=== PATIENT | female | born 1960 | race Caucasian/White ===

== ENCOUNTER 2017-01-12 21:51 | Emergency (ER) | payer BC ==
[2017-01-12] MEDS ORDERED: Ondansetron 4 MG/2 ML SDV IVPUSH ONE (22:14)
[2017-01-12] MEDS ORDERED: Ketorolac 30 MG/ML SDV IVPUSH ONE (22:14)
[2017-01-12] MEDS ORDERED: Dexamethasone 4 MG/ML SDV IVPUSH ONE (22:14)
[2017-01-12] MEDS ORDERED: Sodium Chloride 0.9% 1,000 ML IV SCH (22:15)
[2017-01-12] MEDS ORDERED: Sodium Chloride 0.9% 10 ML Syringe FLUSH PRN (22:17)
--- NOTE | 2017-01-12 22:19 | EDM.PDOC ---
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 Pt c/o photophobia, has no nausea at this time, did not vomit, denied head injuries. BP was 125/86 No neck pain, no SOB, no C/O no extremity pain, no F/C or any other acute medical issues. Pt stated, medication in the ed makes her usually nauseated, not Dilaudid, however. Onset: Today Onset Date: 01/12/17 Onset Time: 14:00 Duration: Intermittent Location: Reports: Head Quality: Reports: Ache, Dull, Same as Previous Episode, Other (not the worst headache) Headache Pain Score (Numeric/FACES): 6 - Related Data Allergies Allergy/AdvReac Type Severity Reaction Status Date / Time Penicillins Allergy Rash Verified 01/12/17 22:01 Home Meds: Home Meds Estrogen,Juhi/Me-Testosterone [Covaryx] 1 tab PO DAILY 05/10/13 [History] Gabapentin [Neurontin] 900 mg PO DAILY PRN 05/10/13 [History] Progesterone,Micronized [Progesterone] 100 mg PO DAILY 05/10/13 [History] Rizatriptan [Maxalt] 10 mg PO ASDIRECTED PRN 05/10/13 [History] Testosterone [Testim] 5 gm TD DAILY 05/10/13 [History] Topiramate [Topamax] 200 mg PO BEDTIME 05/10/13 [History] Ubidecarenone [Co Q-10] 100 mg PO DAILY 10/21/15 [History] atorvaSTATin Calcium [Atorvastatin Calcium] 10 mg PO MOWEFR 10/21/15 [History] Acetaminop/Dichlphn/Isomethept [Midrin 325-100-65 MG] 1 - 2 cap PO DAILY PRN 06/30 [History] ClonazePAM [KlonoPIN] 1 mg PO DAILY PRN 11/19/15 [History] Ketorolac Tromethamine 10 mg PO DAILY PRN 11/19/15 [History] Past Medical History - Past Health History Medical/Surgical History: Denies Medical/Surgical History Cardiovascular History: Reports: High Cholesterol Neurological History: Reports: Migraines Social & Family History - Family History Family Medical History: Noncontributory - Tobacco Use Smoking Status *Q: Never Smoker Second Hand Smoke Exposure: No - Caffeine Use Caffeine Use: Reports: Tea - Alcohol Use Days Per Week of Alcohol Use: 0 Number of Drinks Per Day: 2 Total Drinks Per Week: 0 - Recreational Drug Use Recreational Drug Use: No - Living Situation & Occupation Living situation: Reports: , with Family ED ROS GENERAL - Review of Systems Review Of Systems: See Below Constitutional: Reports: No Symptoms HEENT: Reports: Other (photophobie, H/A) Respiratory: Reports: No Symptoms Cardiovascular: Reports: No Symptoms Endocrine: Reports: No Symptoms GI/Abdominal: Reports: No Symptoms, Nausea : Reports: No Symptoms Musculoskeletal: Reports: No Symptoms Skin: Reports: No Symptoms Neurological: Reports: Headache (her typical migraine H/A) Psychiatric: Reports: No Symptoms Hematologic/Lymphatic: Reports: No Symptoms Immunologic: Reports: No Symptoms - Physical Exam Exam: See Below Exam Limited By: No Limitations General Appearance: Alert, WD/WN, Mild Distress Eye Exam: Bilateral Eye: Normal Inspection Ears: Normal External Exam Nose: Normal Inspection Throat/Mouth: Normal Inspection Head Exam: Atraumatic Neck: Normal Inspection Respiratory/Chest: No Respiratory Distress Cardiovascular: Normal Peripheral Pulses GI/Abdominal: Normal Bowel Sounds (Female) Exam: Deferred Rectal (Female) Exam: Deferred Neuro Exam (Abbreviated): Alert, Oriented, CN II-XII Intact, Normal Cognition, Normal Gait Back Exam: Normal Inspection, Full Range of Motion Extremities: Normal Inspection, Normal Range of Motion, Non-Tender, No Pedal Edema Psychiatric: Normal Affect, Normal Mood Skin Exam: Warm, Dry, Intact, Normal Color, No Rash Course - Vital Signs Text/Narrative:: 56 years old w f with chronic intermittent Migraine headache, 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 Pt c/o photophobia, has no nausea at this time, did not vomit, denied head injuries. BP was 125/86 No neck pain, no SOB, no C/O no extremity pain, no F/C or any other acute medical issues. Not the worst headache ever. HR is 125 BP 124/87 Pt refused imitrex (does not work for her, she said) PE: WNWD WF with photophobia and frontal/mid azeb headache. Angry, demanding. Pt does not appear to be in acute distress, no N/V Labs and Imaging, not indicated Impression: Migraine vs tension Headache, dehydration. Tx: pt agreed to treaNS, Decadron, Toradol, "did not work", then Dilaudid 0.5 was given. Reexam: her puls improved to 109 after hydration, Pt walked out after she received the Dilaudid Plan: D/C with instructions Last Recorded V/S: Last Vital Signs Temp 36.5 C 01/12/17 22:04 Pulse 109 H 01/12/17 23:25 Resp 18 01/12/17 22:04 BP 156/85 H 01/12/17 23:25 Pulse Ox 100 01/12/17 22:04 - Orders/Labs/Meds Orders: Active Orders 24 hr Category Date Time Status Saline Lock Insert [OM.PC] Routine Oth 01/12/17 22:17 Ordered Meds: Medications Discontinued Medications Generic Name Dose Route Start Last Admin Trade Name Hao PRN Reason Stop Dose Admin Dexamethasone 10 mg 01/12/17 22:14 01/12/17 22:22 Dexamethasone IVPUSH 01/12/17 22:15 10 mg ONETIME ONE Administration Diphenhydramine HCl 25 mg 01/12/17 22:26 Benadryl IVPUSH 01/12/17 22:27 ONETIME ONE Diphenhydramine HCl 25 mg 01/12/17 22:33 01/12/17 23:12 Benadryl IVPUSH 01/12/17 22:34 Not Given ONETIME ONE Hydromorphone HCl 0.5 mg 01/12/17 23:12 01/12/17 23:15 Dilaudid IVPUSH 01/12/17 23:13 0.5 mg ONETIME STA Administration Sodium Chloride 1,000 mls @ 999 mls/hr 01/12/17 22:15 01/12/17 22:17 Normal Saline IV 999 mls/hr ASDIRECTED ANUJA Administration Ketorolac Tromethamine 30 mg 01/12/17 22:14 01/12/17 22:21 Toradol IVPUSH 01/12/17 22:15 30 mg ONETIME ONE Administration Ondansetron HCl 8 mg 01/12/17 22:14 01/12/17 22:20 Zofran IVPUSH 01/12/17 22:15 8 mg ONETIME ONE Administration Sodium Chloride 10 ml 01/12/17 22:17 01/12/17 22:18 Saline Flush FLUSH 10 ml ASDIRECTED PRN Administration Keep Vein Open Departure - Departure Time of Disposition: 23:14 Disposition: Home, Self-Care 01 Condition: Good Clinical Impression: Tension headache Migraine Qualifiers: Migraine type: unspecified Status migrainosus presence: without status migrainosus Intractability: not intractable Qualified Code(s): G43.909 - Migraine, unspecified, not intractable, without status migrainosus - Discharge Information Instructions: Migraine Headache, [id number] Referrals: Janina Boston NP [Primary Care Provider] - Forms: ED Department Discharge Additional Instructions: Please f/u with your PMD or neurologist, please come back if your symptoms gets worse acutely - My Orders Last 24 Hours: My Active Orders 01/12/17 22:17 Saline Lock Insert [OM.PC] Routine - Assessment/Plan Last 24 Hours: My Active Orders 01/12/17 22:17 Saline Lock Insert [OM.PC] Routine
[2017-01-12] MEDS ORDERED: diphenhydrAMINE 50 MG/ML SDV IVPUSH ONE ×2 (22:26→22:33)
[2017-01-12] MEDS ORDERED: HYDROmorphone 2 MG/ML SDV IVPUSH STA (23:12)
[2017-01-12 23:26] VITALS: BP 156/85
== END 2017-01-12 23:25 | disposition home or self-care (01) ==
LOC: FB.ED 21:51
DX: G44.209 Tension-type headache, unspecified, not intractable (principal); G43.909 Migraine, unspecified, not intractable, without status migrainosus; E78.00 Pure hypercholesterolemia, unspecified; Z79.899 Other long term (current) drug therapy; Z88.0 Allergy status to penicillin
CPT/HCPCS: 96361; 96374; 96375; 99284; J1100; J1170; J1885; J2405; J7040; J7050

== ENCOUNTER 2017-08-06 19:24 | Emergency (ER) | payer BC ==
--- NOTE | 2017-08-06 20:03 | EDM.PDOC ---
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, took a gabapentin at noon, age a big lunch drove home, drank a milkshake hoping the sugar would help, head quite painful on drive home, took no additional meds at home has ketorolac at home has letter from neurologist saying opiates and fluids have helped in the past pt had Botox 2w ago, then shingles vaccine 1w ago, had [place] x 24H 6d ago had nerve block 6d ago by neurologist that helped h/o migraines since age 19 here with says her head hurts all over no f/c/d, no n/v did not eat supper says she cannot take Benadryl, "it depresses me" Head Pain Score (Numeric/FACES): 8 - Related Data Allergies Allergy/AdvReac Type Severity Reaction Status Date / Time No Known Allergies Allergy Verified 08/06/17 19:35 Home Meds: Home Meds Estrogen,Juhi/Me-Testosterone [Covaryx] 1 tab PO DAILY 05/10/13 [History] Gabapentin [Neurontin] 900 mg PO DAILY PRN 05/10/13 [History] Progesterone,Micronized [Progesterone] 100 mg PO DAILY 05/10/13 [History] Rizatriptan [Maxalt] 10 mg PO ASDIRECTED PRN 05/10/13 [History] Testosterone [Testim] 5 gm TD DAILY 05/10/13 [History] Topiramate [Topamax] 200 mg PO BEDTIME 05/10/13 [History] Ubidecarenone [Co Q-10] 100 mg PO DAILY 10/21/15 [History] atorvaSTATin Calcium [Atorvastatin Calcium] 10 mg PO MOWEFR 10/21/15 [History] Acetaminop/Dichlphn/Isomethept [Midrin 325-100-65 MG] 1 - 2 cap PO DAILY PRN 06/30 [History] ClonazePAM [KlonoPIN] 1 mg PO DAILY PRN 11/19/15 [History] Ketorolac Tromethamine 10 mg PO DAILY PRN 11/19/15 [History] Hydrochlorothiazide 12.5 mg PO DAILY 08/06/17 [History] Ondansetron [Zofran ODT] 4 mg PO Q6H PRN 08/06/17 [History] Past Medical History - Past Health History Medical/Surgical History: Denies Medical/Surgical History Cardiovascular History: Reports: High Cholesterol, Hypertension Neurological History: Reports: Migraines Social & Family History - Family History Family Medical History: Noncontributory - Tobacco Use Smoking Status *Q: Never Smoker - Caffeine Use Caffeine Use: Reports: None - Recreational Drug Use Recreational Drug Use: No - Living Situation & Occupation Living situation: Reports: , with Family ED ROS GENERAL - Review of Systems Review Of Systems: See Below Constitutional: Reports: No Symptoms HEENT: Reports: No Symptoms Respiratory: Reports: No Symptoms Cardiovascular: Reports: No Symptoms Endocrine: Reports: No Symptoms GI/Abdominal: Reports: No Symptoms : Reports: No Symptoms Musculoskeletal: Reports: No Symptoms Skin: Reports: No Symptoms, Erythema Neurological: Reports: Headache Psychiatric: Reports: No Symptoms Hematologic/Lymphatic: Reports: No Symptoms Immunologic: Reports: No Symptoms - Physical Exam Exam: See Below Exam Limited By: No Limitations General Appearance: Alert, WD/WN, Mild Distress, Other (resting in darkened room , nl speech, nl cognition) Eye Exam: Bilateral Eye: Normal Inspection, PERRL Ears: Normal External Exam, Normal Canal Nose: Normal Inspection Throat/Mouth: Normal Inspection, Normal Lips, Normal Teeth, Normal Gums, Normal Oropharynx, Normal Voice, No Airway Compromise Head Exam: Atraumatic, Normocephalic, Other (NT). No: Scalp Tenderness, Facial Tenderness, Sinus Tenderness Neck: Normal Inspection, Supple, Non-Tender, Full Range of Motion Respiratory/Chest: No Respiratory Distress, Lungs Clear, Normal Breath Sounds, No Accessory Muscle Use, Chest Non-Tender Cardiovascular: Normal Peripheral Pulses, Regular Rate, Rhythm, No Edema, No Gallop, No Murmur, No Rub GI/Abdominal: Soft, Non-Tender, No Organomegaly, No Distention Neuro Exam (Abbreviated): Alert, Oriented, CN II-XII Intact, Normal Cognition, No Motor/Sensory Deficits Back Exam: Normal Inspection Extremities: Normal Inspection, Normal Range of Motion, Non-Tender, No Pedal Edema, Normal Capillary Refill Psychiatric: Normal Affect, Normal Mood Skin Exam: Warm, Dry, Intact, Normal Color, No Rash Course - Vital Signs Last Recorded V/S: Last Vital Signs Temp 36.4 C 08/06/17 19:24 Pulse 118 H 08/06/17 19:24 Resp 20 08/06/17 19:24 BP 159/97 H 08/06/17 19:24 Pulse Ox 99 08/06/17 19:24 - Orders/Labs/Meds Orders: Active Orders 24 hr Category Date Time Status Dexamethasone Med 08/06/17 21:13 Once 10 mg IVPUSH ONETIME ONE Medication Orders Dexamethasone (Dexamethasone) 10 mg IVPUSH ONETIME ONE Stop: 08/06/17 21:14 Meds: Medications Generic Name Dose Route Start Last Admin Trade Name Freq PRN Reason Stop Dose Admin Dexamethasone 10 mg 08/06/17 21:13 Dexamethasone IVPUSH 08/06/17 21:14 ONETIME ONE Discontinued Medications Generic Name Dose Route Start Last Admin Trade Name Freq PRN Reason Stop Dose Admin Sodium Chloride 1,000 mls @ 999 mls/hr 08/06/17 19:56 08/06/17 20:09 Normal Saline IV 08/06/17 20:56 999 mls/hr .BOLUS ONE Administration Ketorolac Tromethamine 30 mg 08/06/17 19:55 08/06/17 20:10 Toradol IVPUSH 08/06/17 19:56 30 mg ONETIME ONE Administration Metoclopramide HCl 10 mg 08/06/17 19:55 08/06/17 20:10 Reglan IVPUSH 08/06/17 19:56 10 mg ONETIME ONE Administration - Re-Assessments/Exams Free Text/Narrative Re-Assessment/Exam: 08/06/17 21:14 feeling much better, fell asleep, declined additional meds, however we discussed using Decadron and she agreed, does have a steroid dose pack at home from neurologist which she has never used, understands that she can come back at any time Departure - Departure Time of Disposition: 21:16 Disposition: Home, Self-Care 01 Condition: Good Clinical Impression: Migraine - Discharge Information Instructions: Migraine Headache Referrals: Janina Boston NP [Primary Care Provider] - Forms: ED Department Discharge Additional Instructions: Continue current meds. In the morning take ketorolac 10 mg one tab and acetaminophen 500 mg two tabs. May take an additional gabapentin as needed. May take acetaminophen 500 mg 2 tabs before you go to bed tonight. Use ice pack for 10 minutes every hour as needed. Return to ED if you are feeling worse. - My Orders Last 24 Hours: My Active Orders 08/06/17 21:13 Dexamethasone 10 mg IVPUSH ONETIME ONE - Assessment/Plan Last 24 Hours: My Active Orders 08/06/17 21:13 Dexamethasone 10 mg IVPUSH ONETIME ONE
[2017-08-06] MEDS: Sodium Chloride 0.9% 1,000 ML IV ONE (20:09)
[2017-08-06] MEDS: Metoclopramide 10 MG/2 ML SDV IVPUSH ONE (20:10)
[2017-08-06] MEDS: Ketorolac 30 MG/ML SDV IVPUSH ONE (20:10)
[2017-08-06] MEDS: Dexamethasone 4 MG/ML SDV IVPUSH ONE (21:29)
[2017-08-06] MEDS: Dexamethasone 4 MG/ML SDV ONE (21:37)
[2017-08-06 22:57] VITALS: BP 117/82
== END 2017-08-06 21:42 | disposition home or self-care (01) ==
LOC: FB.ED 19:24
DX: G43.909 Migraine, unspecified, not intractable, without status migrainosus (principal); E78.00 Pure hypercholesterolemia, unspecified; I10 Essential (primary) hypertension; Z79.899 Other long term (current) drug therapy
CPT/HCPCS: 96361; 96374; 96375; 99283; J1100; J1885; J2765; J7040; J7030

== ENCOUNTER 2019-09-27 07:35 | Day surgery (SDC) | payer BC ==
[~2019-09-27 07:35] MED LIST: Lactated Ringers 1,000 ML IV SCH; Sodium Chloride 0.9% 10 ML Syringe FLUSH PRN
[2019-09-27] MEDS ORDERED: Propofol 200 MG/20 ML SDV IV ONE (07:36)
[2019-09-27] MEDS ORDERED: Lidocaine 1% PF 2 ML SDV INJECT ONE (07:36)
--- NOTE | 2019-09-27 09:45 | PCM.OPNOTE ---
- General Post-Op/Procedure Note Date of Surgery/Procedure: 09/27/19 Operative Procedure(s): c scope Findings: internal hemorrhoids Pre Op Diagnosis: bleeding per rectum Post-Op Diagnosis: internal hemorrhoids Anesthesia Technique: WILIAM Primary Surgeon: Yobani Barney Anesthesia Provider: Win Coffey Pathology: none Complications: None Condition: Good Free Text/Narrative:: see dictation
--- NOTE | 2019-09-27 13:17 | OR ---
DATE OF OPERATION: 09/27/2019 SURGEON: Yobani Barney MD PROCEDURE PERFORMED: Colonoscopy. PREOPERATIVE DIAGNOSIS: Bleeding per rectum. POSTOPERATIVE DIAGNOSIS: Internal hemorrhoids. INDICATIONS FOR PROCEDURE: This is a 58-year-old white female who presents. She has the above-mentioned complaint of some bright red blood per rectum. She was offered and accepted colonoscopy. DESCRIPTION OF OPERATION: After an excellent IV sedation was administered, digital rectal exam was performed. No marked abnormality was noted. Flexible colonoscope was inserted and advanced to the cecum. The prep was excellent. The following findings were noted: Ascending colon, unremarkable. Transverse colon, unremarkable. Descending colon, unremarkable. Sigmoid, unremarkable. Rectum and anus, on retroflexing the scope, there was noted to be some what appeared to be grade 1 hemorrhoids, which appeared to be the cause of her bleeding. Otherwise, this was unremarkable. The patient tolerated the procedure well. RECOMMENDATIONS: Repeat colonoscopy in 10 years. Follow up with me on a p.r.n. basis for possible banding if the bleeding persists. Also recommend a high- fiber diet. /[id number] /MODL
[2019-09-27 15:57] VITALS: BP 104/62; PULSE 69
== END 2019-09-27 11:15 | disposition home or self-care (01) ==
LOC: FB.SDS 07:35
PROVIDERS: ATTEND Surgery
DX: K64.8 Other hemorrhoids (principal); E05.90 Thyrotoxicosis, unspecified without thyrotoxic crisis or storm; E78.2 Mixed hyperlipidemia; N18.9 Chronic kidney disease, unspecified; I12.9 Hypertensive chronic kidney disease with stage 1 through stage 4 chronic kidney disease, or unspecified chronic kidney disease; Z86.010 Personal history of colon polyps; Z88.6 Allergy status to analgesic agent; Z88.5 Allergy status to narcotic agent; Z88.8 Allergy status to other drugs, medicaments and biological substances; Z98.890 Other specified postprocedural states; Z79.899 Other long term (current) drug therapy
CPT/HCPCS: 00811-QZ; J2001; J2704; J7120

== ENCOUNTER 2022-04-19 19:26 | Emergency (ER) | payer BC ==
[2022-04-19] MEDS ORDERED: Ondansetron 4 MG Tab.DIS PO STA (20:09)
[2022-04-19 20:27] LABS: ESTIMATED GFR 52 mL/min (>60)
[2022-04-19] MEDS ORDERED: Meclizine 25 MG Tab PO ONE (20:42)
[2022-04-19 22:41] VITALS: BP 120/70; PULSE 86
== END 2022-04-19 22:10 | disposition home or self-care (01) ==
LOC: FB.ED 19:26
DX: H81.10 Benign paroxysmal vertigo, unspecified ear (principal); J06.9 Acute upper respiratory infection, unspecified; E78.00 Pure hypercholesterolemia, unspecified; I12.9 Hypertensive chronic kidney disease with stage 1 through stage 4 chronic kidney disease, or unspecified chronic kidney disease; N18.9 Chronic kidney disease, unspecified; E03.9 Hypothyroidism, unspecified; Z79.899 Other long term (current) drug therapy
CPT/HCPCS: 36415; 80053; 85025; 93005; 93010; 99283; 99284; A9270-GY; Q0162